=== PATIENT | female | born 1980 | race African-American/Black ===

== ENCOUNTER 2017-03-25 20:05 | Emergency (ER) | payer MEDICAID, OTHER ==
[~2017-03-25] VITALS: Ht 162.6 cm; Wt 59.0 kg
[~2017-03-25 20:05] MED LIST: NKM; PENICILLIN V P250 MG PO
[2017-03-25] MEDS ORDERED: Tetanus/Diptheria/Pertussis Vaccine 0.5ml Syr IM ONE (20:45)
[2017-03-25] MEDS ORDERED: Tylenol #3 tab (300mg/30mg) PO ONE (20:45)
[2017-03-25 21:30] VITALS: BP 127/84
[2017-03-25] MEDS ORDERED: NORCO 5-325 TA1 EACH ORAL (21:43)
[2017-03-25] MEDS ORDERED: IBUPROFEN600 MG ORAL (21:43)
[2017-03-25] MEDS ORDERED: AMOXICILLIN500 MG ORAL (21:43)
[2017-03-25 21:45] VITALS: BP 127/84
--- NOTE | 2017-03-26 13:10 | Diagnostic Imaging Report ---
Indication: Headache Technique: Contiguous 5 mm thick transaxial imaging of the head obtained in a Siemens Sensation [address] scanner. Soft tissue and bone windows generated. Total Dose length Product (DLP): [address] Dose Index Volume (CTDIvol): 70.38 mGy Comparison: none Findings: The size and configuration of the cortical sulci, basal cisterns, and ventricles are within normal limits for age. There is no mass effect, midline shift, or edema identified. There is no evidence of acute hemorrhage or abnormal intra-axial or extra-axial fluid collections. The bones and soft tissues are unremarkable. Impression: No mass effect, edema or acute bleed. [facility] has communicated the preliminary results to the Emergency Department. Their findings are largely concordant with this report. Note: The patient also goes by the name of Felisha, Chinyere. The CT scanner at [facility] is accredited by the [employer] and the scans are performed using dose optimization techniques as appropriate to a performed exam including Automatic Exposure control.
--- NOTE | 2017-03-27 09:04 | Diagnostic Imaging Report ---
Indication: Facial trauma and pain Technique: Continuous helical transaxial imaging of the maxillofacial structures obtained without intravenous contrast administration. Coronal 2-D reformats were also obtained. Study obtained in a Siemens sensation [address] Total Dose length Product (DLP): [address] Dose Index Volume (CTDIvol): 28.2, 70.38 mGy Comparison: None Findings: There is no acute fracture. Paranasal sinuses are clear. Orbits appear normal bilaterally. There is a small soft tissue defect demonstrated superficially involving the right maxillary region presumably a laceration. Impression: No acute fracture. Right-sided superficial laceration noted. [facility] has communicated the preliminary results to the Emergency Department. Their findings are largely concordant with this report. The CT scanner at [facility] is accredited by the [employer] and the scans are performed using dose optimization techniques as appropriate to a performed exam including Automatic Exposure control.
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
== END 2017-03-25 21:57 | disposition home or self-care (01) ==
LOC: EMR 20:28
DX: S01.411A Laceration without foreign body of right cheek and temporomandibular area, initial encounter (principal); Y04.2XXA Assault by strike against or bumped into by another person, initial encounter; Y92.511 Restaurant or cafe as the place of occurrence of the external cause; Z23 Encounter for immunization
CPT/HCPCS: 70450; 70486; 90471; 90715; 99284

== ENCOUNTER 2018-06-27 18:05 | Emergency (ER) | payer MEDICAID ==
[~2018-06-27] VITALS: Ht 162.6 cm; Wt 63.5 kg
[2018-06-27 18:00] VITALS: BP 102/61
[~2018-06-27 18:05] MED LIST changes: +AMOXICILLIN500 MG ORAL; +IBUPROFEN600 MG ORAL; +NORCO 5-325 TA1 EACH ORAL
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
[2018-06-27 19:38] VITALS: BP 102/61
--- NOTE | 2018-06-28 13:50 | Diagnostic Imaging Report ---
Indication: Pain Knee pain/trauma 3 views of the right knee were obtained. Findings: No acute fracture, malalignment, or joint effusion are identified. Joint space is relatively well-maintained. Impression: Negative for acute findings.
== END 2018-06-27 19:38 | disposition home or self-care (01) ==
LOC: EDBD 18:05 → EMR 19:38
DX: S83.91XA Sprain of unspecified site of right knee, initial encounter (principal); S80.211A Abrasion, right knee, initial encounter; W05.2XXA Fall from non-moving motorized mobility scooter, initial encounter; Y92.89 Other specified places as the place of occurrence of the external cause
CPT/HCPCS: 99283